=== PATIENT | female | born 1995 | race Caucasian/White ===

== ENCOUNTER 2016-06-26 11:43 | Outpatient (CLI) | payer MEDICAID, OTHER ==
[2016-06-26 12:14] VITALS: BMI 26.2
[2016-06-26 15:37] LABS: AMPHETAMINES/METHAMPHETAMINES NEGATIVE (NEGATIVE); COCAINE NEGATIVE (NEGATIVE); MARIJUANA NEGATIVE (NEGATIVE); METHADONE NEGATIVE (NEGATIVE); OPIATES NEGATIVE (NEGATIVE); TRICYCLIC ANTIDEPRESSANTS NEGATIVE (NEGATIVE)
== END 2016-06-26 16:15 | disposition home or self-care (01) ==
LOC: SUATTDRO 11:43 → FBCOUT 11:43 → FBC 11:44 → FBCOUT 16:15
PROVIDERS: ATTEND Advanced Practice Midwife
DX: O26.899 Other specified pregnancy related conditions, unspecified trimester (principal); Z3A.00 Weeks of gestation of pregnancy not specified

== ENCOUNTER 2016-07-09 06:27 | Outpatient (CLI) | payer MEDICAID, OTHER ==
[2016-07-09 06:43] VITALS: BMI 26.6
== END 2016-07-09 09:53 | disposition home or self-care (01) ==
LOC: FBC 06:27 → FBCOUT 06:27
PROVIDERS: ATTEND Advanced Practice Midwife
DX: O47.9 False labor, unspecified (principal); Z3A.00 Weeks of gestation of pregnancy not specified

== ENCOUNTER 2016-07-09 11:32 | Inpatient (IN) | payer MEDICAID, OTHER ==
[2016-07-09] MEDS ORDERED: OXYTOCIN IN LR 500 ML IV ONE ×3 (12:20→22:21)
[2016-07-09] MEDS ORDERED: OXYTOCIN 10 UNITS/ML VIAL ONE (12:20)
[2016-07-09] MEDS ORDERED: LIDOCAINE 1% (PRES FREE) 30 ML VIAL ONE (12:20)
[2016-07-09] MEDS ORDERED: LIDOCAINE Viscous 2% 15 ML UDCUP ONE (12:20)
[2016-07-09] MEDS ORDERED: PUMP TUBING ONE (12:20)
[2016-07-09] MEDS ORDERED: MINERAL OIL 25 ML BOT ONE (12:20)
[2016-07-09] MEDS ORDERED: PENICILLIN G POTASSIUM 5 MMU in NS 0.9% (MINI-BAG PLUS) 100 ML IV ONE (12:28)
[2016-07-09] MEDS ORDERED: LACTATED RINGERS 1,000 ML IV PRN ×2 (12:28→22:21)
[2016-07-09] MEDS ORDERED: LACTATED RINGERS 1,000 ML IV SCH (12:30)
[2016-07-09] MEDS ORDERED: PENICILLIN G POTASSIUM 5 MMU VIAL ONE (12:35)
[2016-07-09] MEDS ORDERED: NS 0.9% (MINI-BAG PLUS) 100 ML IV ONE (12:35)
[2016-07-09] MEDS ORDERED: LACTATED RINGERS 0 ML ONE (12:36)
[2016-07-09] MEDS ORDERED: IV START KIT ONE (12:36)
[2016-07-09 13:20] LABS: HEMATOCRIT 32.5 % (37.0-47.0); HEMOGLOBIN 10.8 gm/l (12.0-16.0); MEAN CELL VOLUME 82.9 fl (81.0-99.0); MEAN CORPUSCULAR HEMOGLOBIN 27.6 pg (27.0-31.0); MEAN CORPUSCULAR HGB CONC 33.2 g/dl (33.0-37.0); RED CELL DISTRIBUTION WIDTH 13.6 % (11.5-14.5)
[2016-07-09 13:28] VITALS: BMI 26.6
--- NOTE | 2016-07-09 13:32 | PCMAN ---
OB Admission Note - History : 2 Term: 1 : 0 Abortions (S&E): 0 Livin EDC:: 07/03/16 Gestational Age (weeks): 40 Days (#/7): 6 Admit Cervical Dilation:: 5 Admit Cervical Effacement (%):: 90 Admit Station:: -2 Admit Presentaton:: vertex NILDA per Clark's Membrane Status: Intact Labor Onset (Date): 07/09/16 Labor Onset (Time): 12:30 Contractions: Yes Contraction Frequency:: q 2-3 mins Heart Rate:: 135 (moderate variability, accels, no decels) Status:: Fetus Cat 1 EFW:: 7.5lbs Summary of Course:: Nahed is a 20 yo at 40 w 6d presenting with spontaneous onset of contractions at term. PAYAM from [facility] in [facility]. Initiated care at 10 wks for 7 visits with [facility].Initial Wt 151. TWG this 10lbs. Dates by sure LMP consistent with 12wk US. At 19wk US, choroid plexus cysts and dilated renal calyces noted. Followed up [facility] MFM and resolved by 32wks. Declined genetic testing with the . labs, WNL except Rh neg, received Rhogam at 28wks(04/10) and anemia ( hgb 10.0 on 06/11). Took oral Fe. Tdap given at 24 wks, declined flu shot Was diagnosed with Influenza A at 39weeks, treated with Tamiflu and resolved without complications. GBS pos Today she presented to [facility] for labor triage and after three hours was sent home at 4cm after minimal change noted under observation. She returned at 1230pm today with increased intensity in the contractions, moving, breathing, and vocalizing through contractions. 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 - Labs Blood Type: B (-) negative Hct/Hgb:: 10.8/32.5 Rubella Status: Non-immune GBS Status: Positive Abnormal Labs: Other (Influenza A pos at 39 wks) - Review of Systems ROS is negative except for nausea nd abdominal pain described as contractions - Physical Exam Psych/Mental Status: Mood/Affect Appropriate, Judgment/Insight Intact Neurological: Grossly Intact, Alert, Oriented x 4 HEENT: Atraumatic Lungs: Clear to Auscultation Bilaterally, Normal Air Movement Cardiovascular: Regular Rate and Rhythm, Normal S1, Normal S2 Genitourinary: Normal Female Genitalia Rectal Exam: Deferred Extremities: Full ROM Skin: Normal Color - Problems (1) Active labor at term Status: Acute Code: [id number] Assessment/Plan: A: 20 yo at 40w6d Active labor GBS pos, pcn prophylaxis x1 Fetus Cat 1 Membranes intact P: Admit to [facility] Nahed plans to labor unmedicated. She is supported by her partner Sathish and her mother. She plans to labor with the ball on hands and knees with counterpressure and then use the tub for hydrotherapy IA per protocol as fetus Cat 1 Initiate and continue PCN prophylaxis per protocol for GBS pos status. AMTSL per patient request.
[2016-07-09] MEDS ORDERED: FENTANYL 100 MCG/2 ML VIAL IV ONE (15:30)
[2016-07-09] MEDS ORDERED: FENTANYL 100 MCG/2 ML VIAL ONE (15:31)
[2016-07-09] MEDS ORDERED: PENICILLIN G 3 MIL UNIT PREMIX 50 ML IV ONE ×2 (16:29→20:12)
[2016-07-09] MEDS: PENICILLIN G 3 MIL UNIT PREMIX 3 MMU in Premix (D5W) 50 ml 1 EACH IV SCH ×2 (16:37→20:23)
[2016-07-09] MEDS ORDERED: BENZOCAINE/MENTHOL 60 APPLIC/BOT TP PRN (22:21)
[2016-07-09] MEDS ORDERED: LANOLIN 50 APPLIC/7G TUBE TP PRN (22:21)
[2016-07-09] MEDS ORDERED: CALCIUM CARBONATE 500 MG TAB.CHEW PO PRN (22:21)
[2016-07-09] MEDS ORDERED: DOCUSATE SODIUM 100 MG CAPSULE PO PRN (22:21)
[2016-07-09] MEDS: IBUPROFEN 800 MG TABLET PO SCH (22:49)
[2016-07-09] MEDS: HYDROCODONE/ACETAMINOPHEN 5/325MG TABLET PO PRN (22:49)
[2016-07-10] MEDS: HYDROCODONE/ACETAMINOPHEN 5/325MG TABLET PO PRN ×2 (00:07→05:57)
--- NOTE | 2016-07-10 04:48 | PCMDEL ---
Delivery Note - Labor 1st stage (hr/min):: 9h50m 2nd stage (hr/min):: 0h9m 3rd stage (hr/min):: 0h10m Total (hr/min):: 10h9m Pushed (hr/min):: 0h10m - Delivery Delivery (Date): 07/09/16 Delivery (Time): 21:29 Gender: Male Weight: 8 lb 8 oz Length: 1 ft 8 in Presentation: Cephalic Position: OA Umbilical Cord: 3 Vessel Delayed Cord Clamping:: > 3 min 1 Minute Total: 9 5 Minute Total: 9 Placenta:: Alhaji, spontaneous, intact, 3vc EBL:: 200 Perineum:: right labial lac, naturally hemostatic and approximated, not repaired Suture:: none Anesthesia/Meds:: 100 fentanyl in labor at 1530 Length ROM:: 0h5m Comments:: Ryder made steady progress through labor. FHT: Cat. I through out labor. She had a spontaneous urge to push and was found to be 7cm, after positioning with peanut ball, she moved to standing at the bedside with one foot on the bed and had a strong urge to push and was able to achieve quickly over intact perineum of a vigorous . OA to NILDA. Apgars 9/9. She got into bed and was placed skin to skin for bonding and drying. delayed cord clamping until cessation of pulsing cord, cut by FOB. AMTSL initiated and cord blood connected. Spontaneous delivery of intact placenta, 3vc. right labial laceration noted but found to be naturally hemostatic and approximated, thus not needing suture or repair. Fundus firm midline at U. QBL 200ml. Mom and baby stable.
[2016-07-10] MEDS: IBUPROFEN 800 MG TABLET PO SCH ×2 (05:57→17:09)
[2016-07-10 06:42] LABS: HEMATOCRIT 27.9 % (37.0-47.0); HEMOGLOBIN 9.4 gm/l (12.0-16.0)
[2016-07-10] MEDS ORDERED: RHOGAM 300 MCG SYRINGE IV ONE (08:47)
--- NOTE | 2016-07-10 11:15 | PDOC44 ---
- Subjective Day: 1 Dong well. Baby nursing well. Reports , Reports Lochia Moderate - Objective Temp Pulse Resp BP Pulse Ox 97.9 F 70 18 112/55 07/10/16 07:44 07/10/16 07:44 07/10/16 07:44 07/10/16 07:44 Lab Results 07/10/16 07/09/16 06:10 12:35 WBC 13.4 H RBC 3.92 L Hgb 9.4 L 10.8 L Hct 27.9 L 32.5 L Plt Count 253 Current Medications Generic Name Dose Route Start Last Admin Trade Name Freq PRN Reason Stop Dose Admin Acetaminophen/Hydrocodone Bitart 1 - 2 tab 07/09/16 22:21 07/10/16 05:57 [place] 5/325 PO 2 tab Q4H PRN Administration Pain (Moderate) Benzocaine/Menthol 1 applic 07/09/16 22:21 Dermoplast TP PRN PRN Patient Comfort Calcium Carbonate/Glycine 500 - 1,000 mg 07/09/16 22:21 Tums PO BID PRN Indigestion Docusate Sodium 100 mg 07/09/16 22:21 Colace PO DAILY PRN Comfort Emollient Ointment 1 applic 07/09/16 22:21 Nvr-N-Canvad TP PRN PRN sore nipples Lactated Ringer's 1,000 mls @ 100 mls/hr 07/09/16 22:21 Lactated Ringers IV .Q10H PRN Titrate per clinical situation Ibuprofen 800 mg 07/09/16 22:30 07/10/16 05:57 Motrin PO 800 mg Q6H MALENA Administration Sodium Chloride 10 ml 07/09/16 22:21 Normal Saline 10ml Flush IV PRN PRN IV Flush - Physical Exam General: Afebrile Psych/Mental Status: Mood/Affect Appropriate, Bonding Well Neurological: Grossly Intact Breast: Soft, Skin intact, Nipples Intact Fundus: Firm, Midline, Below Umbilicus Genitourinary: Normal Female Genitalia - Problems:Assessment/Plan (1) care and examination of lactating mother Status: Acute Assessment/Plan: A; Stable course P: Discharge tomorrow. PP handout given and reviewed. Disposition: Anticipate DC Home Tomorrow
[2016-07-11] MEDS: HYDROCODONE/ACETAMINOPHEN 5/325MG TABLET PO PRN ×2 (02:22→12:06)
[2016-07-11] MEDS: IBUPROFEN 800 MG TABLET PO SCH ×3 (02:22→12:06)
[2016-07-11 08:21] VITALS: BP 113/68
--- NOTE | 2016-07-11 09:37 | PDOC39B ---
Hospital Course: ADMIT DATE: 07/09/16 DISCHARGE DATE: 07/11/16 ADMISSION DIAGNOSES: Active Labor PROCEDURES: HISTORY OF PRESENT ILLNESS: 20 year old G2 T1 L1 at 40 weeks 6 days presenting with active labor. HOSPITAL COURSE: Ryder made steady progress through labor. FHT: Cat. I through out labor. She had a spontaneous urge to push and was found to be 7cm, after positioning with peanut ball, she moved to standing at the bedside with one foot on the bed and had a strong urge to push and was able to achieve quickly over intact perineum of a vigorous . OA to NILDA. Apgars 9/9. She got into bed and infant was placed skin to skin for bonding and drying. delayed cord clamping until cessation of pulsing cord, cut by FOB. AMTSL initiated and cord blood connected. Spontaneous delivery of intact placenta, 3vc. right labial laceration noted but found to be naturally hemostatic and approximated, thus not needing suture or repair. Fundus firm midline at U. QBL 200ml. Mom and baby stable. She received adequate GBS prophylaxis in labor. recovery has been routine and uneventful. She is without issue, she is up void ad osvaldo, her pain is well managed and her bleeding is decreasing. She is asymptomatic related to blood loss and anemia. By day of discharge the patient is stable, well and ready to go home. - Physical Exam Vital Signs: Temp Pulse Resp BP Pulse Ox 97.7 F 76 16 113/68 07/11/16 08:16 07/11/16 08:16 07/11/16 02:10 07/11/16 08:16 General: Afebrile Psych/Mental Status: Mood/Affect Appropriate, Judgment/Insight Intact, Bonding Well Neurological: Grossly Intact, Alert, Oriented x 4, Normal Gait, Normal Speech Lungs: Clear to Auscultation Bilaterally Cardiovascular: Rubs Breast: Soft, Skin intact, Nipples Intact Fundus: Firm, Midline, Below Umbilicus Genitourinary: Normal Female Genitalia Lochia: Light - Discharge Diagnosis (1) (normal spontaneous vaginal delivery) Status: Acute Assessment/Plan: A: PPD #1 s/p exclusively Asymptomatic anemia P: Discharge home Reviewed warning s/s and when to call CNM RTC in 2wks, appt given, and 6wks, plans mirena IUD - Discharge Plan Condition: Stable Disposition: Home Instruction Forms: Vaginal Discharge Instructions Additional Instructions: Midwifery 'After the ' handout given to patient. Prescriptions: Ibuprofen [IBUPROFEN 800 MG TABLET (SHF)] 800 mg PO Q6H PRN #30 tablet PRN Reason: Pain FERROUS SULFATE (65 Fe) [IRON FERROUS SULFATE 325 MG TABLET (SHF)] 325 mg PO BID #60 tablet Hydrocodone Bit/Acetaminophen [NORCO 5/325 MG TABLET (SHF)] 1 - 2 tab PO Q4H PRN #20 tablet PRN Reason: Pain (Moderate) Discharge Medications: Continue taking iron once a day for anemia Follow-Up: Shahrzad Tobias CNM [Certified Nurse [employer]] - 07/23/16 1:00 pm
== END 2016-07-11 10:30 | disposition home or self-care (01) | DRG 775 ==
LOC: EDSTATUS 12:00 → FBC 12:01
PROVIDERS: ADMIT Advanced Practice Midwife; ATTEND Advanced Practice Midwife
PROC: 10E0XZZ Delivery of Products of Conception, External Approach (ICD-10-PCS; principal; 2016-07-10)
PROC: 3E0234Z Introduction of Serum, Toxoid and Vaccine into Muscle, Percutaneous Approach (ICD-10-PCS; 2016-07-10)
DX: O99.02 Anemia complicating childbirth (principal); O36.0130 Maternal care for anti-D [Rh] antibodies, third trimester, not applicable or unspecified; O99.824 Streptococcus B carrier state complicating childbirth; O70.0 First degree perineal laceration during delivery; Z3A.40 40 weeks gestation of pregnancy; Z37.0 Single live birth

== ENCOUNTER 2016-07-14 14:53 | Outpatient (CLI) | payer MEDICAID | END 2016-07-14 14:54 | disposition home or self-care (01) | LOC: BABIESSH 14:53 | PROVIDERS: ATTEND Advanced Practice Midwife | DX: Z39.1 Encounter for care and examination of lactating mother (principal) ==